=== PATIENT | male | born 1985 | race Caucasian/White ===

== ENCOUNTER 2018-11-11 08:11 | Day surgery (SDC) | payer BC ==
[~2018-11-11] VITALS: Ht 188 cm; Wt 110.2 kg
[~2018-11-11 08:11] MED LIST: BUPIVAC MPF-EPI 0.5%-1:200000 30 ML VIAL. ONE; ESOM40CA PO; HYDROmorphone 2 MG/ML VIAL IV PRN; IV RINGERS,LACTATED 1000ML 1,000 ML IV SCH; LIDOCAINE 1% PF 2 ML VIAL. ID PRN; MORPHINE SULFATE 2 MG/ML VIAL. IV PRN; ONDANSETRON PF 4 MG/2 ML VIAL. IV PRN; PROCHLORPERAZINE 10 MG/2 ML VIAL. IV PRN; fentaNYL PF VIAL 100 MCG/2 ML VIAL IV PRN
[2018-11-11] MEDS ORDERED: fentaNYL PF VIAL 100 MCG/2 ML VIAL ONE ×3 (08:26→11:12)
[2018-11-11] MEDS ORDERED: LIDOCAINE 2% PF 5 ML VIAL. ONE (08:26)
[2018-11-11] MEDS ORDERED: SUCCINYLCHOLINE 200 MG/10 ML VIAL. ONE (08:26)
[2018-11-11] MEDS ORDERED: PROPOFOL 20 ML IV ONE (08:26)
[2018-11-11] MEDS ORDERED: ROCURONIUM 50 MG/5 ML VIAL. ONE (08:26)
[2018-11-11] MEDS ORDERED: DESFLURANE 31 TO 60 MINUTES IH ONE (09:09)
[2018-11-11] MEDS ORDERED: DEXAMETHASONE SOD PHOS 20 MG/5 ML VIAL. ONE (09:09)
[2018-11-11] MEDS ORDERED: ONDANSETRON PF 4 MG/2 ML VIAL. ONE (09:09)
[2018-11-11] MEDS ORDERED: GLYCOPYRROLATE 1 MG/5 ML VIAL. ONE (09:34)
[2018-11-11] MEDS ORDERED: NEOSTIGMINE 10 MG/10 ML VIAL. ONE (09:34)
[2018-11-11] MEDS ORDERED: PROCHLORPERAZINE 10 MG/2 ML VIAL. ONE (10:23)
--- NOTE | 2018-11-11 10:29 | PDOC4 ---
Operative Note Operative Note Date: 09/10/2019 Preoperative diagnosis: Left inguinal hernia Postoperative diagnosis: Left inguinal hernia and right inguinal hernia Procedure: Robotic-assisted laparoscopic bilateral inguinal hernia repairs with mesh Surgeon: Galo Specimen: None Dictation: Patient is a 33-year-old male complained of a ankle bulge in his left groin on exam certainly has a left inguinal hernia procedure of robotic- assisted laparoscopic left inguinal hernia repair with mesh was explained to the patient detail risk benefits were also discussed including bleeding infection injury to intra-abdominal contents possibly necessitating further open operations. The patient seemed to understand and gave both written and verbal consent to have the procedure performed. Patient was taken to the operating room placed in supine position general anesthesia was initiated once patient was sleep and intubated placed low lithotomy positioning and his abdomen was prepped and draped usual sterile fashion using ChloraPrep at this time and area above the umbilicus is injected quarter percent Marcaine with epinephrine incision was made with 11 blade scalpel and a veres needle was placed within the abdomen creating pneumoperitoneum 8 millimeter da Pk port was then placed and the abdomen was inspected with the 30 scope was noted that he had a large left inguinal hernia with incarcerated omentum also a small right inguinal hernia. A millimeter da Pk port was placed in the right mid abdomen and one in the left mid abdomen dementia robot was brought in and docked all port sites are [id number] robotic console using a grasper and Endo Radha scissors the left inguinal hernia was reduced of its incarcerated contents and incision was made in the peritoneum using electrocautery this was extended laterally and medially and a flap was propagated posteriorly and the hernia contents and sac again were reduced. A large mesh Bard 3-D max left side was placed over the hernia defect and the perineum was then closed over the mesh with a running 20V lock absorbable suture. Tensions return to the right side of the peritoneum was taken down similar to the left hernia defect was reduced and a large Bard 3-D max mesh for the right side was placed over the defect and the peritoneum was closed over the mesh with a running 20V lock suture. The robot was undocked from all port sites all ports removed and the pneumoperitoneum was reduced incision sites were all closed for septic and Monocryl Mastisol Steri-Strips and island dressings were applied. Patient was wakened next made in the operating room taken to recovery in stable condition all sponge instrument needle counts listed as correct estimate blood loss 5 mL JOHN STEPHENSON MD Nov 11, 2018 10:29
--- NOTE | 2018-11-11 10:31 | DISCH ---
DISCHARGE INSTRUCTIONS Condition on Discharge Condition on Discharge: Stable Activity After Discharge Activity Instructions for Disc: Avoid exertion Other activity instructions: no lifting more than 20 pounds for 2 weeks Diet after Discharge Diet after Discharge: Regular Wound Incision Care Other wound/incision instructi: Palma shower in 24 hours Contacting the [facility] after DC Call your doctor for: If your condition worsens Follow-Up Follow up with: Dr. Stephenson in 2 weeks JOHN STEPHENSON MD Nov 11, 2018 10:31
[2018-11-11] MEDS ORDERED: oxyCODONE/APAP 5/325 1 TAB TABLET PO ONE ×2 (10:45)
[2018-11-11] MEDS: fentaNYL PF VIAL 100 MCG/2 ML VIAL IV PRN ×3 (10:54→11:15)
[2018-11-11 14:30] VITALS: BP 130/70
== END 2018-11-11 14:52 | disposition home or self-care (01) ==
LOC: SURG 08:11
PROVIDERS: ATTEND Surgery
DX: K40.00 Bilateral inguinal hernia, with obstruction, without gangrene, not specified as recurrent (principal); J45.909 Unspecified asthma, uncomplicated; Z98.890 Other specified postprocedural states; Z72.89 Other problems related to lifestyle; Z79.899 Other long term (current) drug therapy
CPT/HCPCS: 49650; A7015; C1781; C1782; J0330; J0696; J1100; J2001; J2405; J2704; J2710; J3010; J3490; J7120; S2900; J0780